=== PATIENT | female | born 1965 | race Two or more races ===

== ENCOUNTER 2020-07-26 10:50 | Emergency (ER) | payer OTHER ==
[~2020-07-26] VITALS: Ht 167.6 cm; Wt 62.1 kg
[~2020-07-26 10:50] MED LIST: GENERESS; LEVSIN0.125 MG PO; PROTONIX40 MG PO; ZANTAC300 MG PO
[2020-07-26] MEDS ORDERED: TENORMIN25 MG (11:08)
[2020-07-26] MEDS ORDERED: SYNTHROID50 MCG (11:08)
[2020-07-26] MEDS ORDERED: ORTHO DF 3,7751 EACH (11:08)
== END 2020-07-26 16:25 | disposition home or self-care (01) ==
LOC: ER 10:50
DX: R10.32 Left lower quadrant pain (principal)

== ENCOUNTER 2021-03-09 16:06 | Emergency (ER) | payer OTHER ==
[~2021-03-09] VITALS: Ht 165.1 cm; Wt 59.0 kg
[~2021-03-09 16:06] MED LIST changes: +ORTHO DF 3,7751 EACH; +SYNTHROID50 MCG; +TENORMIN25 MG
[2021-03-09] MEDS ORDERED: BUTALBIT-ACETA1 EACH PO (18:53)
== END 2021-03-09 19:00 | disposition home or self-care (01) ==
LOC: ER 16:06
DX: R51.9 Headache, unspecified (principal); Z11.52 Encounter for screening for COVID-19

== ENCOUNTER 2021-10-07 09:08 | Emergency (ER) | payer OTHER ==
[~2021-10-07] VITALS: Ht 167.6 cm; Wt 62.6 kg
[~2021-10-07 09:08] MED LIST changes: +BUTALBIT-ACETA1 EACH PO
[2021-10-07] MEDS ORDERED: CIPRO250 MG PO (13:31)
[2021-10-07] MEDS ORDERED: ORPHENADRINE C100 MG PO (13:31)
[2021-10-07] MEDS ORDERED: DOLOGEN 325-11 EACH PO (13:31)
== END 2021-10-07 13:36 | disposition home or self-care (01) ==
LOC: ER 09:08
DX: K57.30 Diverticulosis of large intestine without perforation or abscess without bleeding (principal); R10.31 Right lower quadrant pain

== ENCOUNTER → 2022-03-26 | Emergency (ER) | payer OTHER ==
[~2022-03-26] VITALS: Ht 167.6 cm; Wt 65.8 kg
[~2022-03-26] MED LIST changes: +CIPRO250 MG PO; +CLARITHROMYCIN250 MG; +DOLOGEN 325-11 EACH PO; +ORPHENADRINE C100 MG PO
== END | disposition left against medical advice (07) ==
LOC: ER 22:37
DX: Z53.21 Procedure and treatment not carried out due to patient leaving prior to being seen by health care provider (principal)

== ENCOUNTER 2022-03-27 11:33 | Emergency (ER) | payer OTHER ==
[~2022-03-27] VITALS: Ht 167.6 cm; Wt 65.8 kg
== END 2022-03-27 16:12 | disposition home or self-care (01) ==
LOC: ER 11:33
DX: R13.10 Dysphagia, unspecified (principal); E04.1 Nontoxic single thyroid nodule; E03.9 Hypothyroidism, unspecified; I10 Essential (primary) hypertension; Z88.2 Allergy status to sulfonamides; Z88.0 Allergy status to penicillin; E06.3 Autoimmune thyroiditis

== ENCOUNTER 2024-12-14 12:23 | Emergency (ER) | payer OTHER ==
[~2024-12-14] VITALS: Ht 167.6 cm; Wt 68.0 kg
[2024-12-14 13:57] VITALS: BP 116/81; O2SAT 99
[2024-12-14] MEDS ORDERED: CIPROFLOXACIN IN 5 % DEXTROSE 400 MG/200 ML PIGGYBAG IV ONE ×2 (16:43→16:45)
[2024-12-14] MEDS ORDERED: FAMOTIDINE/PF 20 MG/2 ML VIAL ONE (16:44)
[2024-12-14] MEDS ORDERED: TRAMADOL HCL 50 MG TABLET PO ONE (16:45)
[2024-12-14] MEDS ORDERED: FAMOtidine 10 MG/ML (4ML VIAL) IV ONE (16:45)
[2024-12-14 17:47] LABS: HEMATOCRIT 40.1 % (36.0-45.00); HEMOGLOBIN 13.9 g/dL (12.0-15.00); MEAN CELL VOLUME 92.7 fL (80.00-100.00); MEAN CORPUSCULAR HEMOGLOBIN 32.2 pg (27.00-32.0); MEAN CORPUSCULAR HGB CONC 34.7 g/dl (32.0-36.0); PLATELET COUNT 236 K/uL (150-450); RED BLOOD COUNT 4.33 M/uL (4.00-6.00); RED CELL DISTRIBUTION WIDTH 13.7 % (11.5-14.5)
[2024-12-14 18:06] LABS: INR 1.03; PARTIAL THROMBOPLASTIN TIME 23.6 SECONDS (22.0-34.0); PROTHROMBIN TIME 11.2 SECONDS (9.0-11.5)
[2024-12-14 18:16] LABS: PH,URINE 6.5 (5.0-8.0); URINE APPEARANCE Clear; URINE BILIRRUBIN Negative (NEGATIVE); URINE BLOOD Negative; URINE COLOR Yellow; URINE GLUCOSE Negative (NEGATIVE); URINE KETONE Negative (NEGATIVE); URINE LEUKOCYTE Negative; URINE NITRATE Negative; URINE PROTEIN Negative (NEGATIVE); URINE UROBILINOGEN 0.2 E.U./dl
[2024-12-14 18:21] LABS: URINE BACTERIA 20.8 uL (0.0-1933); URINE EPITHELIAL CELLS 10.1 uL (0.0-38.8); URINE RBC 4.2 uL (0.0-20.8); URINE WBC 6.3 uL (0.0-23.2)
[2024-12-14 18:32] LABS: ALBUMIN 4.1 gm/dL (3.4-5.0); BILIRUBIN TOTAL 0.9 mg/dL (0.3-1.2); CALCIUM 9.4 mg/dL (8.5-10.1); CREATININE SERUM 0.6 mg/dL (0.55-1.02); GFR 101.63; GLOBULINA 3.6 G/DL (2.4-3.5); POTASSIUM 3.47 mEq/L (3.5-5.1); TOTAL PROTEIN 7.7 gm/dL (6.4-8.2)
== END 2024-12-14 20:08 | disposition home or self-care (01) ==
LOC: ER 12:24
PROVIDERS: General Practice
DX: R10.32 Left lower quadrant pain (principal); I10 Essential (primary) hypertension; K57.92 Diverticulitis of intestine, part unspecified, without perforation or abscess without bleeding; E03.8 Other specified hypothyroidism; I51.9 Heart disease, unspecified; Z88.1 Allergy status to other antibiotic agents; Z88.2 Allergy status to sulfonamides